=== PATIENT | male | born 1945 | race Hispanic/Latino ===

== ENCOUNTER → 2023-11-13 | Outpatient (CLI) | payer OTHER ==
[~2023-11-13] MED LIST: IOHEXOL-350 75 ML VIAL IV ONE
== END | disposition home or self-care (01) ==
LOC: RAH 08:55
PROVIDERS: ATTEND Internal Medicine Cardiovascular Disease
DX: I65.23 Occlusion and stenosis of bilateral carotid arteries (principal)
CPT/HCPCS: 70498; Q9967

== ENCOUNTER 2024-02-11 11:00 | Inpatient (IN) | payer OTHER ==
[~2024-02-11] VITALS: Ht 177.8 cm; Wt 91.4 kg
[2024-02-11 12:04] LABS: APPEARANCE,URINE CLEAR (CLEAR); BILIRUBIN,URINE NEGATIVE (NEGATIVE); COLOR,URINE LIGHT-YELLOW (YELLOW); GLUCOSE, URINE (UA) >=1000 mg/dL (NEGATIVE); KETONES,URINE NEGATIVE (NEGATIVE); LEUKOCYTE ESTERASE ,URINE NEGATIVE Leu/uL (NEGATIVE); NITRATE,URINE NEGATIVE (NEGATIVE); OCCULT BLOOD,URINE NEGATIVE (NEGATIVE); PROTEIN,URINE NEGATIVE (NEGATIVE); UROBILINOGEN,URINE 0.2 mg/dL (0.2-1.0)
[2024-02-11 12:05] LABS: ADD UA MICROSCOPIC YES
[2024-02-11 12:08] LABS: MUCUS,URINE RARE LPF (None Seen); WBC,URINE 0-1 /HPF (0-1)
[2024-02-11 12:10] VITALS: BP 150/84; PULSE 57; RESP 17; TEMP 98.4
[2024-02-11 12:13] LABS: BASOPHILS # (AUTO) 0.03 K/uL (0.00-0.20); BASOPHILS % (AUTO) 0.7 % (0.0-5.0); EOSINOPHILS % (AUTO) 4.5 % (0.0-8.0); HEMATOCRIT 42.1 % (42-54); LYMPHOCYTES # (AUTO) 1.3 K/uL (1.0-4.8); LYMPHOCYTES % (AUTO) 28.9 % (21.0-51.0); MEAN CORPUSCULAR HEMOGLOBIN 32.2 pg (27.0-33.0); MEAN CORPUSCULAR HGB CONC 34.2 g/dL (32.0-36.0); MEAN CORPUSCULAR VOLUME 94.2 fL (79-99); MONOCYTES # (AUTO) 0.3 K/uL (0.1-1.0); MONOCYTES % (AUTO) 7.4 % (3.0-13.0); NEUTROPHILS # (AUTO) 2.6 K/uL (1.8-7.7); NEUTROPHILS % (AUTO) 58.5 % (40.0-77.0); PLATELET COUNT (AUTO) 153 K/uL (130-400); RED BLOOD CELL COUNT(AUTO) 4.47 MIL/uL (4.50-6.20); RED CELL DISTRIBUTION WIDTH 13.7 % (11.0-15.5); WHITE BLOOD COUNT (AUTO) 4.5 K/uL (4.8-10.8)
[2024-02-11 12:27] LABS: INR 1.02 (0.85-1.15)
[2024-02-11 12:28] LABS: PARTIAL THROMBOPLASTIN TIME 27.3 SEC (26.3-35.5)
[2024-02-11 12:43] LABS: CREATININE 1.3 mg/dL (0.5-1.3); POTASSIUM 4.3 mmol/L (3.5-5.1)
[2024-02-11] MEDS ORDERED: SENN-141 PO (18:32)
[2024-02-11] MEDS ORDERED: HYDR12.54 PO (18:32)
[2024-02-11] MEDS ORDERED: EMPA25TA PO (18:32)
[2024-02-11] MEDS ORDERED: CLOP75TA32 PO (18:32)
[2024-02-11] MEDS ORDERED: TAMS-1 PO (18:32)
[2024-02-11] MEDS ORDERED: LOSA25TA41 PO (18:32)
[2024-02-11] MEDS ORDERED: ASPI-1521 PO (18:32)
[2024-02-11] MEDS ORDERED: ATOR40TA71 PO (18:32)
[2024-02-13] VITALS (45 sets, daily range): BP systolic 76–164; BP diastolic 7–83; PULSE 48–78; RESP 13–27; TEMP 97.4–100; O2SAT 94–100
[2024-02-13] MEDS: 0.9%NACL 1000ML 1,000 ML IV ONE (06:28)
[2024-02-13] MEDS ORDERED: IODIXANOL 320 MG/ML 100 ML VIAL ONE (07:12)
[2024-02-13] MEDS ORDERED: ATROPINE 1MG SYG IVP ONE (07:13)
[2024-02-13] MEDS ORDERED: HEParin-NS 1,000 UNIT/500 ML 1,000 ML IV ONE (07:13)
[2024-02-13] MEDS ORDERED: HEParin 10,000 UNIT/10ML (1,000 UNIT/ML) VIAL ONE (07:16)
[2024-02-13] MEDS ORDERED: ceFAZolin SODIUM 1 GM VIAL ONE ×2 (07:17→07:21)
[2024-02-13] MEDS ORDERED: LIDOCAINE PF 100MG/5ML (2%) SYRINGE 5ML ONE (07:19)
[2024-02-13] MEDS ORDERED: proPOFol 10 MG/ML 20ML VIAL IV ONE (07:20)
[2024-02-13] MEDS ORDERED: MIDAZOLAM HCL 1 MG/ML 2ML VIAL ONE (07:20)
[2024-02-13] MEDS ORDERED: PHENYLEPHRINE HCL 10 MG/ML 1ML VIAL IV ONE ×2 (07:20→08:57)
[2024-02-13] MEDS ORDERED: rocuRONium bROMide 10MG/1ML 5ML VL ONE (07:20)
[2024-02-13] MEDS ORDERED: SUCCINYLCHOLINE CHLORIDE 20 MG/ML 10 ML VIAL ONE (07:20)
[2024-02-13] MEDS ORDERED: FENTanyl CITRate PF 50 MCG/1 ML 2ML VIAL ONE (07:22)
[2024-02-13] MEDS ORDERED: NITROGLYCERIN 50MG VIAL ONE (07:24)
[2024-02-13] MEDS ORDERED: ePHEDrine SULFate 50 MG/ML AMPULE ONE (07:25)
[2024-02-13] MEDS ORDERED: NEOSTIGMINE METHYLSULFATE 1MG/ML IV ONE (07:27)
[2024-02-13] MEDS ORDERED: GLYCOPYRROLATE 0.2 MG/ML 5 ML VIAL ONE (07:27)
[2024-02-13] MEDS ORDERED: LIDOCAINE HCL 1% 20 ML VIAL ONE (07:51)
[2024-02-13] MEDS ORDERED: NOREPINEPHRINE BITARTRATE 1 MG/1 ML ML IV ONE (08:40)
[2024-02-13] MEDS ORDERED: HEParin-NS 1,000 UNIT/500 ML 500 ML IV ONE (08:56)
[2024-02-13] MEDS ORDERED: ATROPINE 1MG SYG IVP PRN (10:00)
[2024-02-13] MEDS ORDERED: GLUCAGON 1MG KIT 1 MG ML IM PRN (10:00)
[2024-02-13] MEDS ORDERED: DEXTROSE 50%-WATER 50 ML DISP.SYRIN IV PRN (10:00)
[2024-02-13] MEDS ORDERED: NITROGLYCERIN 50MG/D5W 250ML 250 BOT IV SCH (10:00)
[2024-02-13] MEDS: SUGAMMADEX SODIUM 200 MG/2 ML VIAL IV ONE (11:17)
[2024-02-13] MEDS: 0.9%NACL 1000ML 1,000 ML IV SCH (11:18)
[2024-02-13] MEDS: INSULIN humuLIN R 100 UNIT/ML 3ML SQ SCH (11:30)
[2024-02-13] MEDS: NOREPINEPHRIN 4MG/NS 250ML 250 ML IV SCH (11:39)
[2024-02-13] MEDS: acetaMINOPHEN 325 MG TAB ONE (11:44)
[2024-02-13] MEDS: acetaMINOPHEN 325 MG TAB PO PRN (11:44)
[2024-02-13] MEDS: HYDROcodone/APAP 5/325 1 TAB TABLET PO PRN (14:12)
[2024-02-13] MEDS: BENZOCAINE/MENTH/CETYLPYRD CL 1 EACH LOZENGE MM PRN (15:32)
[2024-02-13] MEDS: ceFAZolin SODIUM 2 GM VIAL IVPB SCH (15:37)
[2024-02-13] MEDS ORDERED: BENZOCAINE/MENTH/CETYLPYRD CL 1 EACH LOZENGE MM PRN (16:00)
[2024-02-13] MEDS: atorVAStatin 40 MG TABLET PO SCH (20:31)
[2024-02-14] VITALS (34 sets, daily range): BP systolic 108–154; BP diastolic 41–63; PULSE 45–67; RESP 14–24; TEMP 98.2–98.6; O2SAT 94–98
[2024-02-14 04:42] LABS: HEMATOCRIT 34.6 % (42-54); MEAN CORPUSCULAR HEMOGLOBIN 33.1 pg (27.0-33.0); MEAN CORPUSCULAR HGB CONC 34.4 g/dL (32.0-36.0); MEAN CORPUSCULAR VOLUME 96.4 fL (79-99); RED BLOOD CELL COUNT(AUTO) 3.59 MIL/uL (4.50-6.20); WHITE BLOOD COUNT (AUTO) 5.1 K/uL (4.8-10.8)
[2024-02-14 04:48] LABS: CREATININE 1.3 mg/dL (0.5-1.3); POTASSIUM 3.8 mmol/L (3.5-5.1)
[2024-02-14] MEDS: EMPAGLIFLOZIN 25MG TABLET PO SCH (07:44)
[2024-02-14] MEDS: LoSARTan 25 MG TABLET PO SCH (08:12)
[2024-02-14] MEDS: ASPIRIN 81 MG EC TAB PO SCH (08:13)
[2024-02-14] MEDS: tamSULOsin HCL 0.4 MG CAP.ER.24H PO SCH (08:13)
[2024-02-14] MEDS: CLOPIDOGREL 75MG TAB PO SCH (08:13)
[2024-02-14] MEDS: hydroCHLOROthiazide 25 MG TABLET PO SCH (08:13)
[2024-02-14] MEDS ORDERED: NON-FORMULARY MEDICATION 1 EACH (Hydrochlorothiazide 12.5 MG) PO SCH (09:00)
== END 2024-02-14 15:00 | disposition home or self-care (01) | DRG 36 ==
LOC: DAHIP 02-13 05:32 → 2CV 02-13 10:17 → EDSTATUS 02-13 11:00
PROVIDERS: ADMIT Internal Medicine Pulmonary Disease; ATTEND Internal Medicine Pulmonary Disease
PROC: B3131ZZ Fluoroscopy of Right Common Carotid Artery using Low Osmolar Contrast (ICD-10-PCS; 2024-02-13)
PROC: 037H3DZ Dilation of Right Common Carotid Artery with Intraluminal Device, Percutaneous Approach (ICD-10-PCS; principal; 2024-02-13 08:00)
PROC: X2AH336 Cerebral Embolic Filtration, Extracorporeal Flow Reversal Circuit from Right Common Carotid Artery, Percutaneous Approach, New Technology Group 6 (ICD-10-PCS; 2024-02-13 08:00)
DX: I65.21 Occlusion and stenosis of right carotid artery (principal); E11.65 Type 2 diabetes mellitus with hyperglycemia; E66.3 Overweight; E78.5 Hyperlipidemia, unspecified; I10 Essential (primary) hypertension; I25.10 Atherosclerotic heart disease of native coronary artery without angina pectoris; R00.1 Bradycardia, unspecified; I44.1 Atrioventricular block, second degree; I48.91 Unspecified atrial fibrillation; Z68.29 Body mass index [BMI] 29.0-29.9, adult; Z79.82 Long term (current) use of aspirin; Z86.73 Personal history of transient ischemic attack (TIA), and cerebral infarction without residual deficits
CPT/HCPCS: 36415; 37215; 71045; 80048; 81001; 82948; 85025; 85027; 85610; 85730; 86850; 86900; 86901; 86923; 93005; A4606; C1894; G0378; J0330; J0461; J0690; J1644; J2001; J2250; J2371; J2704; J2710; J3010; J3490; J7030; Q9967; A4215; A4216; A4221; A4222; A4223; A4315; A4351; A4649; A4663; A4930; C1713; C1760; C1769; C1876; C1884